=== PATIENT | female | born 1960 | race Caucasian/White ===

== ENCOUNTER 2023-11-20 14:29 | Inpatient (IN) | payer OTHER, MEDICAID ==
[~2023-11-20] VITALS: Ht 162.6 cm; Wt 81.2 kg
[2023-11-20 14:30] VITALS: BP_SYST 102; PULSE 68; RESP 18; TEMP 97; O2SAT 96
[2023-11-20] MEDS: NACL 0.9% 1,000 ML IV ONE ×2 (16:30→18:58)
[2023-11-20 16:38] LABS: BASOPHILS % (AUTO) 0.4 % (0.0-2.0); HEMATOCRIT 37.7 % (36-48); HEMOGLOBIN 13.3 g/dL (12.0-16.0); LYMPHOCYTES # (AUTO) 0.3 K/uL (1.0-5.5); LYMPHOCYTES % (AUTO) 2.9 % (20.5-51.5); MEAN CORPUSCULAR HEMOGLOBIN 35 pg (27-31); MEAN CORPUSCULAR HGB CONC 35 % (32-36); MEAN CORPUSCULAR VOLUME 100 fL (79.0-98.0); MONOCYTES # (AUTO) 0.3 K/uL (0.0-1.0); MONOCYTES % (AUTO) 2.5 % (1.7-9.3); NEUTROPHILS % (AUTO) 94.2 % (40.0-70.0); PLATELET COUNT (AUTO) 301 K/uL (130-430); RED BLOOD CELL COUNT(AUTO) 3.79 MIL/uL (4.2-6.2); RED CELL DISTRIBUTION WIDTH 12.7 % (9.0-15.0); WHITE BLOOD COUNT (AUTO) 10.6 K/uL (4.8-10.8)
[2023-11-20 16:45] LABS: PROTHROMBIN TIME 10.3 SECS (9.5-12.5)
[2023-11-20 16:51] LABS: ANION GAP 8 (5-15); CALCIUM 8.6 mg/dL (8.4-11.0); CARBON DIOXIDE 26 mmol/L (23-29); CHLORIDE 98 mmol/L (98-107); CREATININE 0.98 mg/dL (0.55-1.30); GFR AFRICAN AMERICAN 74 mL/min (>90); GLUCOSE 139 mg/dL (74-106); SODIUM SERUM 132 mmol/L (136-145); UREA NITROGEN, BLOOD 19 mg/dL (8-21)
[2023-11-20 16:52] LABS: GFR NON AFRICAN-AMERICAN 61 mL/min (>90)
[2023-11-20 16:56] LABS: ALANINE AMINOTRANSFERASE 19 U/L (12-78); ALBUMIN 3.1 g/dL (3.4-4.8); ASPARTATE AMINOTRANSFERASE < 5 U/L (10-37); BILIRUBIN,DIRECT 0.1 mg/dL (0.0-0.3); CREATINE KINASE, TOTAL 63 U/L (26-192); LIPASE 30 U/L (16-77); TOTAL BILIRUBIN 0.3 mg/dL (0.0-1.0); TOTAL PROTEIN, SERUM 7.3 g/dL (6.4-8.3)
[2023-11-20 17:01] LABS: BILIRUBIN,URINE NEGATIVE (NEGATIVE); BLOOD, URINE NEGATIVE (NEGATIVE); CLARITY/URINE CLEAR (CLEAR); COLOR,URINE YELLOW (YELLOW); GLUCOSE,URINE NEGATIVE (NEGATIVE); KETONES,URINE NEGATIVE (NEGATIVE); LEUKOCYTE ESTERASE ,URINE NEGATIVE (NEGATIVE); NITRITE, URINE NEGATIVE (NEGATIVE); PH,URINE 6.5 (5.0-8.0); PROTEIN URINE NEGATIVE (NEGATIVE); UROBILINOGEN,URINE 0.2 (0.2-1.0)
[2023-11-20 17:12] LABS: COVID19 ANTIGEN SOFIA FIA NEGATIVE (NEGATIVE)
[2023-11-20 17:19] LABS: BARBITURATE, URINE NEGATIVE (NEG <=200); BENZODIAZEPINE, URINE NEGATIVE (NEG <=150); CANNABINOID, URINE NEGATIVE (NEG <=50); COCAINE, URINE NEGATIVE (NEG <=150); METHAMPHETAMINES SCREEN,URINE NEGATIVE (NEG <=500); OPIATE, URINE NEGATIVE (NEG <=100); PHENCYCLIDINE SCREEN,URINE NEGATIVE (NEG <=25); URINE AMPHETAMINE NEGATIVE (NEG <=500); URINE METHADONE NEGATIVE (NEG <=200); URINE OXYCODONE SCREEN NEGATIVE (NEG <=100)
[2023-11-20 17:20] LABS: UR TRICYCLIC ANTIDEPRESSANTS NEGATIVE (NEG <=300)
[2023-11-20 17:30] LABS: INFLUENZA TYPE A Negative (NEGATIVE); INFLUENZA TYPE B NEGATIVE (NEGATIVE)
[2023-11-20] MEDS ORDERED: ONDANSETRON HCL 4 MG/2 ML VIAL IVP PRN (18:45)
[2023-11-20] MEDS: LORazepam 2 MG/ML VIAL IVP ONE (19:24)
[2023-11-20 22:40] VITALS: BP_SYST 129; PULSE 73; RESP 16; TEMP 96.6; O2SAT 98
[2023-11-21] VITALS (7 sets, daily range): BP systolic 102–117; PULSE 62–72; RESP 16–20; TEMP 97.5–98; O2SAT 94–100
[2023-11-21] MEDS: NACL 0.9% 1,000 ML IV SCH (00:20)
[2023-11-21] MEDS: CIPROFLOXACIN LACT 400 MG/D5W 200 ML IV SCH (00:20)
[2023-11-21] MEDS: LORazepam 2 MG/ML VIAL IVP ONE ×2 (00:45→13:53)
[2023-11-21] MEDS: CIPROFLOXACIN LACT 400 MG/D5W 200 ML IV ONE (02:05)
[2023-11-21 06:41] LABS: BASOPHILS % (AUTO) 0.6 % (0.0-2.0); EOSINOPHILS # (AUTO) 0.1 K/uL (0.0-0.4); EOSINOPHILS % (AUTO) 0.7 % (0.0-4.0); HEMATOCRIT 33.1 % (36-48); HEMOGLOBIN 11.3 g/dL (12.0-16.0); LYMPHOCYTES # (AUTO) 0.6 K/uL (1.0-5.5); LYMPHOCYTES % (AUTO) 7.7 % (20.5-51.5); MEAN CORPUSCULAR HEMOGLOBIN 35 pg (27-31); MEAN CORPUSCULAR HGB CONC 34 % (32-36); MEAN CORPUSCULAR VOLUME 101 fL (79.0-98.0); MONOCYTES # (AUTO) 0.5 K/uL (0.0-1.0); MONOCYTES % (AUTO) 6.5 % (1.7-9.3); NEUTROPHILS # (AUTO) 6.9 K/uL (1.8-7.7); NEUTROPHILS % (AUTO) 84.5 % (40.0-70.0); PLATELET COUNT (AUTO) 254 K/uL (130-430); RED BLOOD CELL COUNT(AUTO) 3.27 MIL/uL (4.2-6.2); RED CELL DISTRIBUTION WIDTH 13.2 % (9.0-15.0); WHITE BLOOD COUNT (AUTO) 8.1 K/uL (4.8-10.8)
[2023-11-21] MEDS: metroNIDAZOLE 500 mg/NS 100 ML IV SCH (06:46)
[2023-11-21 07:17] LABS: ALBUMIN 2.4 g/dL (3.4-4.8); CREATININE 0.77 mg/dL (0.55-1.30); PHOSPHORUS 2.7 mg/dL (2.7-4.5); POTASSIUM 3.8 mmol/L (3.5-5.1); TOTAL BILIRUBIN 0.5 mg/dL (0.0-1.0); TOTAL PROTEIN, SERUM 5.8 g/dL (6.4-8.3)
[2023-11-21] MEDS: LACTOBACILLUS RHAMNOSUS GG 1 CAP CAPSULE PO SCH (09:18)
[2023-11-21] MEDS: QUEtiapine FUMARATE 25 MG TABLET PO ONE (15:59)
[2023-11-21] MEDS: LORazepam 2 MG/ML VIAL IVP PRN (18:03)
[2023-11-21] MEDS: QUEtiapine FUMARATE 25 MG TABLET PO SCH (21:46)
[2023-11-22 00:24] VITALS: BP_SYST 118; PULSE 64; RESP 17; TEMP 97.6; O2SAT 100
[2023-11-22 06:51] LABS: BASOPHILS % (AUTO) 0.7 % (0.0-2.0); EOSINOPHILS # (AUTO) 0.1 K/uL (0.0-0.4); EOSINOPHILS % (AUTO) 1.4 % (0.0-4.0); HEMATOCRIT 36.5 % (36-48); HEMOGLOBIN 12.6 g/dL (12.0-16.0); LYMPHOCYTES # (AUTO) 0.6 K/uL (1.0-5.5); MEAN CORPUSCULAR HEMOGLOBIN 35 pg (27-31); MEAN CORPUSCULAR HGB CONC 35 % (32-36); MEAN CORPUSCULAR VOLUME 101 fL (79.0-98.0); MONOCYTES # (AUTO) 0.3 K/uL (0.0-1.0); NEUTROPHILS # (AUTO) 4.7 K/uL (1.8-7.7); NEUTROPHILS % (AUTO) 81.9 % (40.0-70.0); PLATELET COUNT (AUTO) 291 K/uL (130-430); RED BLOOD CELL COUNT(AUTO) 3.62 MIL/uL (4.2-6.2); RED CELL DISTRIBUTION WIDTH 12.8 % (9.0-15.0); WHITE BLOOD COUNT (AUTO) 5.8 K/uL (4.8-10.8)
[2023-11-22 07:30] LABS: ALBUMIN 2.7 g/dL (3.4-4.8); CALCIUM 8.1 mg/dL (8.4-11.0); CREATININE 0.87 mg/dL (0.55-1.30); FREE T4 (FREE THYROXINE) 1.7 ng/dl (0.8-1.5); POTASSIUM 3.9 mmol/L (3.5-5.1); THYROID STIMULATING HORMONE 1.59 uIu/mL (0.36-3.74); TOTAL BILIRUBIN 0.6 mg/dL (0.0-1.0); TOTAL PROTEIN, SERUM 6.4 g/dL (6.4-8.3)
[2023-11-22 08:00] VITALS: BP_SYST 108; PULSE 65; RESP 20; TEMP 97.5; O2SAT 95; O2SAT 96
[2023-11-22 11:30] VITALS: BP_SYST 141; PULSE 87; RESP 20; TEMP 97.9; O2SAT 99
[2023-11-22] MEDS: QUEtiapine FUMARATE 25 MG TABLET PO SCH (14:51)
[2023-11-22 16:52] VITALS: BP_SYST 138; PULSE 91; RESP 21; TEMP 97.9; O2SAT 99
[2023-11-22 20:03] VITALS: BP_SYST 128; PULSE 96; RESP 20; TEMP 99.1; O2SAT 95
[2023-11-23 00:37] VITALS: BP_SYST 135; PULSE 91; RESP 17; TEMP 98.6; O2SAT 95
[2023-11-23 08:00] VITALS: BP_SYST 139; PULSE 86; RESP 16; TEMP 98; O2SAT 97
[2023-11-23 10:54] VITALS: O2SAT 98
[2023-11-23 11:24] VITALS: BP_SYST 158; PULSE 69; RESP 16; TEMP 98.9; O2SAT 97
[2023-11-23 16:49] VITALS: BP_SYST 137; PULSE 89; RESP 20; TEMP 98.9; O2SAT 98
[2023-11-23 20:04] VITALS: BP_SYST 135; PULSE 86; RESP 20; TEMP 99.5; O2SAT 98
[2023-11-23] MEDS: QUEtiapine FUMARATE 25 MG TABLET PO SCH (21:54)
[2023-11-24 00:08] VITALS: BP_SYST 115; PULSE 78; RESP 18; TEMP 98.4; O2SAT 95
[2023-11-24 05:22] LABS: BASOPHILS # (AUTO) 0.1 K/uL (0.0-0.2); BASOPHILS % (AUTO) 0.6 % (0.0-2.0); EOSINOPHILS # (AUTO) 0.1 K/uL (0.0-0.4); EOSINOPHILS % (AUTO) 0.5 % (0.0-4.0); HEMATOCRIT 35.9 % (36-48); HEMOGLOBIN 12.4 g/dL (12.0-16.0); LYMPHOCYTES # (AUTO) 0.6 K/uL (1.0-5.5); LYMPHOCYTES % (AUTO) 6.4 % (20.5-51.5); MEAN CORPUSCULAR HEMOGLOBIN 34 pg (27-31); MEAN CORPUSCULAR HGB CONC 34 % (32-36); MEAN CORPUSCULAR VOLUME 100 fL (79.0-98.0); MONOCYTES # (AUTO) 0.8 K/uL (0.0-1.0); MONOCYTES % (AUTO) 8.5 % (1.7-9.3); NEUTROPHILS # (AUTO) 7.9 K/uL (1.8-7.7); PLATELET COUNT (AUTO) 301 K/uL (130-430); RED BLOOD CELL COUNT(AUTO) 3.59 MIL/uL (4.2-6.2); RED CELL DISTRIBUTION WIDTH 12.8 % (9.0-15.0); WHITE BLOOD COUNT (AUTO) 9.4 K/uL (4.8-10.8)
[2023-11-24 05:38] LABS: ALBUMIN 2.4 g/dL (3.4-4.8); CALCIUM 8.5 mg/dL (8.4-11.0); CREATININE 0.75 mg/dL (0.55-1.30); POTASSIUM 3.5 mmol/L (3.5-5.1); TOTAL BILIRUBIN 0.5 mg/dL (0.0-1.0); TOTAL PROTEIN, SERUM 6.5 g/dL (6.4-8.3)
[2023-11-24 08:46] VITALS: BP_SYST 100; PULSE 89; RESP 15; TEMP 98.6; O2SAT 95
[2023-11-24 11:08] VITALS: BP_SYST 107; PULSE 81; RESP 16; TEMP 97.7; O2SAT 93
[2023-11-24 15:25] VITALS: BP_SYST 110; PULSE 97; RESP 16; TEMP 97.7; O2SAT 93
[2023-11-24] MEDS ORDERED: QUET50TA PO (16:17)
[2023-11-24] MEDS: QUEtiapine FUMARATE 25 MG TABLET PO SCH (18:23)
[2023-11-24 18:41] VITALS: BP_SYST 110; PULSE 93; RESP 16; TEMP 97.7; O2SAT 95
[2023-11-24 19:00] VITALS: BP_SYST 148; PULSE 98; RESP 16; TEMP 98.3; O2SAT 97
== END 2023-11-24 19:50 | disposition home or self-care (01) | DRG 391 ==
LOC: SED 14:29 → STU 18:44 → SMU 11-23 18:47
PROVIDERS: ADMIT Internal Medicine; ATTEND Internal Medicine
DX: A08.4 Viral intestinal infection, unspecified (principal); E43 Unspecified severe protein-calorie malnutrition; E87.1 Hypo-osmolality and hyponatremia; K52.89 Other specified noninfective gastroenteritis and colitis; Z20.822 Contact with and (suspected) exposure to COVID-19; E66.9 Obesity, unspecified; Q90.9 Down syndrome, unspecified; Z88.2 Allergy status to sulfonamides; Z88.0 Allergy status to penicillin; Z68.30 Body mass index [BMI] 30.0-30.9, adult; R41.0 Disorientation, unspecified
CPT/HCPCS: 36415; 70450-TC; 71045; 80048; 80053; 80076; 80307; 81001; 81003; 82140; 82550; 82948; 83605; 83690; 83735; 83880; 84100; 84439; 84443; 84484; 85025; 85610; 85730; 87040; 87045-TC; 87046; 87086; 93005; 96361; 96374; 97110-GP; 97112-GP; 97163-GP; 97530-GP; 99285; G0378; J0744; J2060; J3490